=== PATIENT | female | born 1950 | race Caucasian/White ===

== ENCOUNTER 2022-08-31 05:45 | Emergency (ER) | payer MEDICARE, OTHER ==
[~2022-08-31] VITALS: Ht 152.4 cm; Wt 65.8 kg
[2022-08-31] MEDS ORDERED: OXYCODONE HCL5 MG PO (05:56)
[2022-08-31] MEDS ORDERED: ADULT ASPIRIN R81 MG PO (05:57)
--- NOTE | 2022-08-31 22:07 | EKG ---
[facility] [address] [facility] [place] [address] Signed Sinus bradycardia Moderate voltage criteria for LVH, may be normal variant ( R in aVL , [place] product ) Nonspecific T wave abnormality Abnormal ECG No previous ECGs available Confirmed by Maciej Parker MD () on 08/31/2022 10:07:03 PM Electronically Signed By: MACIEJ PARKER MD 08/31/222206 PATIENT NAME: SHARONDA BHATIA Electrocardiogram DATE OF : 54 PHYSICIAN: MACIEJ PARKER MD REPORT #: [id number] REPORT IS CONFIDENTIAL AND NOT TO BE RELEASED WITHOUT AUTHORIZATION
== END 2022-08-31 09:31 | disposition home or self-care (01) ==
LOC: ED 05:45
DX: R55 Syncope and collapse (principal); R01.1 Cardiac murmur, unspecified; Z88.6 Allergy status to analgesic agent; Z88.2 Allergy status to sulfonamides; Z79.82 Long term (current) use of aspirin
CPT/HCPCS: 36415; 70450; 71045; 73560; 80053; 83735; 84484; 85025; 90471; 90714; 93005; 93010; 99285-25

== ENCOUNTER 2024-04-14 07:05 | Emergency (ER) | payer MEDICARE, OTHER ==
[~2024-04-14] VITALS: Ht 152.4 cm; Wt 86.0 kg
[~2024-04-14 07:05] MED LIST: ADULT ASPIRIN R81 MG PO; OXYCODONE HCL5 MG PO
[2024-04-14] MEDS ORDERED: ATORVASTATIN CA20 MG PO (07:13)
[2024-04-14 08:03] VITALS: BP 173/76
== END 2024-04-14 08:03 | disposition home or self-care (01) ==
LOC: ED 07:05
DX: R04.0 Epistaxis (principal); Z88.2 Allergy status to sulfonamides; Z88.6 Allergy status to analgesic agent; Z79.82 Long term (current) use of aspirin; Z79.899 Other long term (current) drug therapy
CPT/HCPCS: 99283